=== PATIENT | male | born 1950 | race Caucasian/White ===

== ENCOUNTER 2022-05-25 05:30 | Inpatient (IN) | payer MEDICARE, BC ==
[2022-05-19 14:32] LABS: BASOPHILS # (AUTO) 0.1 X10'3 (0-0.2); BASOPHILS % (AUTO) 0.7 % (0-1); EOSINOPHILS # (AUTO) 0.1 X10'3 (0-0.9); LYMPHOCYTES # (AUTO) 1.7 X10'3 (1.1-4.8); LYMPHOCYTES % (AUTO) 17.4 % (21-51); MEAN CORPUSCULAR HEMOGLOBIN 28.1 PG (27.0-31.0); MEAN CORPUSCULAR HGB CONC 32.9 g/dL (33.0-36.5); MEAN CORPUSCULAR VOLUME 85.4 FL (78-98); MEAN PLATELET VOLUME 8.1 FL (7.4-10.4); MONOCYTES # (AUTO) 1.1 X10'3 (0-0.9); MONOCYTES % (AUTO) 10.9 % (2-12); NEUTROPHILS # (AUTO) 6.9 X10'3 (1.8-7.7); PRE OP HEMATOCRIT 37.7 % (42.0-52.0); PRE OP HEMOGLOBIN 12.4 g/dL (14.0-17.9); PRE OP PLATELET COUNT 339 X10'3 (140-440); RED BLOOD COUNT 4.42 X10'6 (4.70-6.10); RED CELL DISTRIBUTION WIDTH 16.1 % (11.5-14.5)
[2022-05-19 14:46] LABS: PRE OP INR 1.1 INR; PRE OP PROTIME 11.4 SECONDS (9.0-12.0)
[2022-05-19 14:48] LABS: ALBUMIN 2.9 G/DL (3.4-5.0); ALBUMIN/GLOBULIN RATIO 0.6 (1.1-1.5); ALKALINE PHOSPHATASE 150 IU/L (46-116); BLOOD UREA NITROGEN 14 MG/DL (7-18); BUN/CREATININE RATIO 13.9 (5.4-32.0); CALCIUM 9.3 MG/DL (8.5-10.1); CHLORIDE 102 MMOL/L (99-107); CREATININE 1.01 MG/DL (0.60-1.10); PRE OP ALT 31 U/L (30-65); PRE OP ANION GAP 10 (8-16); PRE OP AST 17 U/L (10-37); PRE OP BILIRUB, TOTAL 0.6 MG/DL (0.0-1.0); PRE OP GLUCOSE 103 MG/DL (70-104); PRE OP SODIUM 138 MMOL/L (135-145); TOTAL CARBON DIOXIDE 25.7 MMOL/L (24-32); TOTAL PROTEIN 7.6 G/DL (6.4-8.2); eGFR 73 ML/MIN
[~2022-05-25] VITALS: Ht 188 cm; Wt 97.6 kg
[2022-05-25] VITALS (23 sets, daily range): BP systolic 80–138; BP diastolic 48–83
[~2022-05-25 05:30] MED LIST: APIX5TAB3 PO; ATOR40TA PO; DICL75TA28 PO; DOCUMENT DATE & TIME OF BETA-BLOCKER PO ONE; ERGO500041 PO; ESCI5TAB PO; FURO20TA4 PO; LISI1TAB51 PO; METO50TA16 PO; OMEG-167 PO; OMEP20CA16 PO; acetaminophen 325mg tablet PO ONE; ceFAZolin inj. 3,000 MG in normal saline 100ml IV soln 100 ML IV ONE; celeCOXIB 100mg capsule PO ONE; famotidine 20mg tablet PO ONE; gabapentin 300mg capsule PO ONE; metoclopramide 5 mg/ml inj IV ONE; oxyCODONE SR 10mg (sust. release) tab -2 tabs (20mg) PO ONE; tranexamic acid inj. 1,000 MG in 0.7% saline 100 ML PMX IV ONE; vancomycin 1,500 MG in NS 300ml IV soln IV ONE
[2022-05-25] MEDS: ringers solution, lacted 1,000 ML IV SCH ×2 (06:11→19:20)
[2022-05-25] MEDS ORDERED: bisacodyl 10mg suppository rectal RC PRN (06:30)
[2022-05-25] MEDS ORDERED: diphenhydrAMINE 25mg capsule PO PRN ×2 (06:30)
[2022-05-25] MEDS ORDERED: magnesium hydroxide 30ml (MOM) UD suspension PO PRN (06:30)
[2022-05-25] MEDS ORDERED: HYDROmorphone inj. 0.5 MG/0.5 ML DISP.SYRIN IV PRN (06:30)
[2022-05-25] MEDS ORDERED: naloxone 0.4 mg/ml inj IV PRN (06:30)
[2022-05-25] MEDS ORDERED: acetaminophen 325mg tablet PO PRN (06:30)
[2022-05-25] MEDS ORDERED: ondansetron/PF 4mg/2ml inj IV PRN ×2 (06:30→09:00)
[2022-05-25] MEDS ORDERED: oxyCODONE/APAP 10/325mg tablet PO PRN (06:30)
[2022-05-25] MEDS ORDERED: HYDROmorphone 1 mg/ml syringe IV PRN (06:30)
--- NOTE | 2022-05-25 07:00 | NUR ---
PT HAS +PULSES TO BLE, ABLE TO COMPLETE SHOWERS, DID NOT VIEW INTERNET INFO-BUT DID HAVE OTHER KNEE DONE PREVIOUSLY, IS INSTRUCTION DONE.
[2022-05-25] MEDS ORDERED: cloNIDine hcl/PF 100mcg/ml inj ONE (07:24)
[2022-05-25] MEDS ORDERED: epiNEPHrine 1 mg/ml inj ONE (07:24)
[2022-05-25] MEDS ORDERED: ketorolac trometh. 30mg/ml inj. ONE (07:24)
[2022-05-25] MEDS ORDERED: ROPIVAcaine 0.5% (5mg/ml) 30ml vial ONE ×2 (07:25→10:07)
[2022-05-25] MEDS ORDERED: vancomycin 1,000mg inj ONE (07:25)
[2022-05-25] MEDS: gabapentin 300mg capsule PO SCH ×3 (08:00→20:24)
[2022-05-25] MEDS: ascorbic acid 500mg tablet PO SCH ×2 (08:00→20:24)
[2022-05-25] MEDS: multivitamins, therapeutics tablet PO SCH (08:00)
[2022-05-25] MEDS ORDERED: ceFAZolin/D5W- 1GM premix 50 ML IV SCH (08:00)
[2022-05-25] MEDS ORDERED: MIDAZolam 1mg/ml 10ml vial ONE (08:04)
[2022-05-25] MEDS ORDERED: fentaNYL/PF 50MCG/1 ML 2ML syringe ONE (08:04)
[2022-05-25] MEDS ORDERED: ringers solution, lacted 1,000 ML IV SCH (09:00)
[2022-05-25] MEDS ORDERED: meperidine/PF 25mg/ml syringe IV PRN ×2 (09:00)
[2022-05-25] MEDS ORDERED: morphine 4 MG/ML inj SYRINge IV PRN (09:00)
[2022-05-25] MEDS ORDERED: ROPIVAcaine 0.2% (10 MG/5 ML) BOLUS INJECTION ADDCANAL PRN (09:00)
[2022-05-25] MEDS ORDERED: proCHLORperazine 10 MG/2 ml inj IV PRN (09:00)
[2022-05-25] MEDS ORDERED: morphine 2 MG/ML inj. syringe IV PRN (09:00)
--- NOTE | 2022-05-25 10:23 | NUR ---
Received from OR via HOSPITAL BED, accompanied by Anesthesiologist and report given by Anesthesiolgist. 18G PIV TO LEFT HAND WITH LR RUNNING AT 100ML/HR. VSS, PATIENT IN A.FIB. RIGHT KNEE SURGICAL SITE WITH JOHN, SLEEVE, BROWN SAND. PATIENT ABLE TO WIGGLE TOES SLIGHTLY ON BILATERAL FEET, ALL OTHER EXTREMITIES NORMAL. BILATERAL DORSALIS PEDIS PULSES PRESENT. DENIES PAIN. SPINAL ANESTHESIA-PATIENT STATES FEELING NORMAL UNTIL BILATERAL UPPER THIGHS, FEELING IS DULL.
[2022-05-25] MEDS: ROPIVAcaine 0.2%/PF PUMP/bolus 545 ML ADDCANAL SCH (11:57)
[2022-05-25] MEDS: meperidine/PF 25mg/ml syringe IV PRN ×2 (12:08→12:23)
--- NOTE | 2022-05-25 12:25 | NUR ---
Patient in room ORTHO 4009B. I have received report from RIVER ASHLEY FROM [facility] and had the opportunity to ask questions and assume patient care.
--- NOTE | 2022-05-25 12:25 | NUR ---
REPORT GIVEN TO RECEIVING NURSE, HOLLAND. PATIENT TO ROOM 4005B. PATIENT C/O SLIGHT PAIN, DEMEROL GIVEN, ONQ RUNNING. DRINKING WATER, DENIES NAUSEA. SENT WITH ALL BELONGINGS.
[2022-05-25] MEDS ORDERED: tranexamic acid inj. 980 MG in normal saline 100ml IV soln 100 ML IV ONE (13:40)
[2022-05-25] MEDS ORDERED: tranexamic acid inj. 1,000 MG in normal saline 100ml IV soln 90 ML IV ONE (13:50)
[2022-05-25] MEDS: potassium cl 20mEq in 1/2 NS 1,000 ML IV SCH ×2 (14:30→19:20)
[2022-05-25] MEDS: cefazolin/dext.iso 2gm/100ml 100 ML IV SCH (17:24)
--- NOTE | 2022-05-25 19:36 | NUR ---
Problems reprioritized. Patient report given, questions answered & plan of care reviewed with MILLY Alicea RN.
[2022-05-25] MEDS ORDERED: vancomycin inj 1,750 MG in normal saline 500ml IV soln 350 ML IV ONE (20:00)
[2022-05-25] MEDS: apixaban 5mg tablet PO SCH (20:24)
[2022-05-25] MEDS: sennosides 8.6mg tablet PO SCH (20:24)
[2022-05-25] MEDS: ESCITALOPRAM OXALATE 5 MG TABLET PO SCH (20:25)
[2022-05-25] MEDS: atorvastatin 20mg tablet PO SCH (20:25)
[2022-05-25] MEDS: metoprolol tartrate 50mg tablet PO SCH (20:27)
[2022-05-26] MEDS: cefazolin/dext.iso 2gm/100ml 100 ML IV SCH (00:10)
[2022-05-26] MEDS: potassium cl 20mEq in 1/2 NS 1,000 ML IV SCH ×3 (00:11→15:39)
[2022-05-26 02:00] VITALS: BP 131/84
[2022-05-26] MEDS: oxyCODONE/APAP 10/325mg tablet PO PRN ×2 (05:02→13:20)
[2022-05-26 06:00] VITALS: BP 127/64
[2022-05-26 06:51] LABS: BASOPHILS % (AUTO) 0.5 % (0-1); EOSINOPHILS # (AUTO) 0.1 X10'3 (0-0.9); EOSINOPHILS % (AUTO) 1.3 % (0-6); HEMATOCRIT 34.1 % (42.0-52.0); HEMOGLOBIN 11.1 g/dl (14.0-17.9); LYMPHOCYTES # (AUTO) 1.2 X10'3 (1.1-4.8); LYMPHOCYTES % (AUTO) 12.6 % (21-51); MEAN CORPUSCULAR HEMOGLOBIN 27.9 PG (27.0-31.0); MEAN CORPUSCULAR HGB CONC 32.6 g/dL (33.0-36.5); MEAN CORPUSCULAR VOLUME 85.4 FL (78-98); MEAN PLATELET VOLUME 8.1 FL (7.4-10.4); MONOCYTES # (AUTO) 1.1 X10'3 (0-0.9); MONOCYTES % (AUTO) 11.6 % (2-12); NEUTROPHILS # (AUTO) 7.1 X10'3 (1.8-7.7); PLATELET COUNT 284 X10'3 (140-440); RED BLOOD COUNT 3.99 X10'6 (4.70-6.10); RED CELL DISTRIBUTION WIDTH 16.3 % (11.5-14.5); WHITE BLOOD COUNT 9.5 X10'3 (4.5-11.0)
[2022-05-26 07:17] LABS: ANION GAP 12 (8-16); CHLORIDE 103 MMOL/L (99-107); POTASSIUM 4.4 MMOL/L (3.5-5.1); SODIUM 139 MMOL/L (135-145)
[2022-05-26] MEDS: furosemide 20MG tablet PO SCH (08:00)
[2022-05-26] MEDS: multivitamins, therapeutics tablet PO SCH (08:50)
[2022-05-26] MEDS: HYDROchlorothiazide 12.5mg capsule PO SCH (08:51)
[2022-05-26] MEDS: metoprolol tartrate 50mg tablet PO SCH ×2 (08:51→20:00)
[2022-05-26] MEDS: lisinopril 20mg tablet PO SCH (08:52)
[2022-05-26] MEDS: ascorbic acid 500mg tablet PO SCH ×2 (08:52→20:33)
[2022-05-26] MEDS: gabapentin 300mg capsule PO SCH ×3 (08:53→20:36)
[2022-05-26] MEDS: apixaban 5mg tablet PO SCH ×2 (08:53→20:33)
[2022-05-26] MEDS: pantoprazole 40mg Tablet.DR PO SCH (08:53)
--- NOTE | 2022-05-26 11:13 | NUR ---
Noted pt s/p right TKA. Written protein education with RD contact information placed in patient's chart. Pt on a regular diet and eating well, documented with 100% PO intake. Will continue to follow. Addendum: 05/26/22 at [address] Amended: Links added.
[2022-05-26 14:14] VITALS: BP 121/60
[2022-05-26 18:00] VITALS: BP 96/56
--- NOTE | 2022-05-26 18:05 | NUR ---
Patient in room ORTHO 4009. I have received report from RIVER Romero and had the opportunity to ask questions and assume patient care.
[2022-05-26 20:30] VITALS: BP 97/65
--- NOTE | 2022-05-26 20:30 | NUR ---
Agree with Alexia Rivas's Physical assessment with some exceptions.
[2022-05-26] MEDS: celeCOXIB 100mg capsule PO SCH (20:32)
[2022-05-26] MEDS: ESCITALOPRAM OXALATE 5 MG TABLET PO SCH (20:35)
[2022-05-26] MEDS: sennosides 8.6mg tablet PO SCH (20:36)
[2022-05-26] MEDS: atorvastatin 20mg tablet PO SCH (20:36)
[2022-05-26 22:00] VITALS: BP 113/61
[2022-05-27] MEDS: oxyCODONE/APAP 10/325mg tablet PO PRN ×2 (01:11→10:51)
[2022-05-27 02:00] VITALS: BP 110/40
[2022-05-27 06:00] VITALS: BP 117/58
--- NOTE | 2022-05-27 06:09 | NUR ---
Problems reprioritized. Patient report given, questions answered & plan of care reviewed with WENCESLAO Grijalva.
--- NOTE | 2022-05-27 06:30 | NUR ---
Patient in room ORTHO 4009. I have received report from WENCESLAO Hale and had the opportunity to ask questions and assume patient care.
[2022-05-27 06:48] LABS: BASOPHILS % (AUTO) 0.3 % (0-1); EOSINOPHILS # (AUTO) 0.1 X10'3 (0-0.9); EOSINOPHILS % (AUTO) 1.3 % (0-6); HEMATOCRIT 31.7 % (42.0-52.0); HEMOGLOBIN 10.6 g/dl (14.0-17.9); LYMPHOCYTES # (AUTO) 1.8 X10'3 (1.1-4.8); LYMPHOCYTES % (AUTO) 17.1 % (21-51); MEAN CORPUSCULAR HEMOGLOBIN 28.2 PG (27.0-31.0); MEAN CORPUSCULAR HGB CONC 33.3 g/dL (33.0-36.5); MEAN CORPUSCULAR VOLUME 84.5 FL (78-98); MEAN PLATELET VOLUME 7.6 FL (7.4-10.4); MONOCYTES # (AUTO) 1.6 X10'3 (0-0.9); MONOCYTES % (AUTO) 15.5 % (2-12); NEUTROPHILS # (AUTO) 6.8 X10'3 (1.8-7.7); NEUTROPHILS % (AUTO) 65.8 % (42-75); PLATELET COUNT 285 X10'3 (140-440); RED BLOOD COUNT 3.75 X10'6 (4.70-6.10); RED CELL DISTRIBUTION WIDTH 16.3 % (11.5-14.5); WHITE BLOOD COUNT 10.3 X10'3 (4.5-11.0)
[2022-05-27 07:18] LABS: ANISOCYTOSIS 1+; PLATELET ESTIMATE NORMAL; TOTAL CELLS COUNTED 100
[2022-05-27] MEDS: pantoprazole 40mg Tablet.DR PO SCH (07:55)
[2022-05-27] MEDS: celeCOXIB 100mg capsule PO SCH ×2 (07:55→21:21)
[2022-05-27] MEDS: gabapentin 300mg capsule PO SCH ×3 (07:56→21:21)
[2022-05-27] MEDS: multivitamins, therapeutics tablet PO SCH (07:56)
[2022-05-27] MEDS: ascorbic acid 500mg tablet PO SCH ×2 (07:56→21:20)
[2022-05-27] MEDS: apixaban 5mg tablet PO SCH ×2 (07:56→21:21)
[2022-05-27] MEDS: lisinopril 20mg tablet PO SCH (07:57)
[2022-05-27] MEDS: furosemide 20MG tablet PO SCH (07:57)
[2022-05-27] MEDS: metoprolol tartrate 50mg tablet PO SCH ×2 (07:57→21:22)
[2022-05-27] MEDS: HYDROchlorothiazide 12.5mg capsule PO SCH (07:58)
[2022-05-27] MEDS: ROPIVAcaine 0.2%/PF PUMP/bolus 545 ML ADDCANAL SCH (09:17)
[2022-05-27 10:00] VITALS: BP 94/54
--- NOTE | 2022-05-27 17:00 | NUR ---
I have reviewed and agree with all interventions, assessments performed and documented by WENCESLAO Grijalva.
[2022-05-27 18:00] VITALS: BP 113/65
--- NOTE | 2022-05-27 18:30 | NUR ---
Problems reprioritized. Patient report given, questions answered & plan of care reviewed with RIVER Fishman.
--- NOTE | 2022-05-27 18:35 | NUR ---
Patient in room ORTHO 4009. I have received report from Valentine BILLY and had the opportunity to ask questions and assume patient care.
[2022-05-27] MEDS: potassium cl 20mEq in 1/2 NS 1,000 ML IV SCH (20:53)
[2022-05-27] MEDS: ESCITALOPRAM OXALATE 5 MG TABLET PO SCH (21:21)
[2022-05-27] MEDS: sennosides 8.6mg tablet PO SCH (21:21)
[2022-05-27] MEDS: atorvastatin 20mg tablet PO SCH (21:21)
[2022-05-27 22:00] VITALS: BP 128/64
[2022-05-28] MEDS: oxyCODONE/APAP 10/325mg tablet PO PRN ×2 (03:16→07:39)
[2022-05-28 06:00] VITALS: BP 112/68
--- NOTE | 2022-05-28 06:29 | NUR ---
Patient in room ORTHO 4009. I have received report from RIVER Fishman and had the opportunity to ask questions and assume patient care.
--- NOTE | 2022-05-28 06:29 | NUR ---
Problems reprioritized. Patient report given, questions answered & plan of care reviewed with Valentine HOLMAN.
[2022-05-28 07:09] LABS: BASOPHILS % (AUTO) 0.3 % (0-1); EOSINOPHILS # (AUTO) 0.1 X10'3 (0-0.9); EOSINOPHILS % (AUTO) 0.9 % (0-6); HEMATOCRIT 30.5 % (42.0-52.0); HEMOGLOBIN 9.9 g/dl (14.0-17.9); LYMPHOCYTES # (AUTO) 1.6 X10'3 (1.1-4.8); LYMPHOCYTES % (AUTO) 11.7 % (21-51); MEAN CORPUSCULAR HEMOGLOBIN 27.6 PG (27.0-31.0); MEAN CORPUSCULAR HGB CONC 32.3 g/dL (33.0-36.5); MEAN CORPUSCULAR VOLUME 85.3 FL (78-98); MEAN PLATELET VOLUME 8.3 FL (7.4-10.4); MONOCYTES # (AUTO) 1.5 X10'3 (0-0.9); MONOCYTES % (AUTO) 10.9 % (2-12); NEUTROPHILS # (AUTO) 10.2 X10'3 (1.8-7.7); NEUTROPHILS % (AUTO) 76.2 % (42-75); PLATELET COUNT 300 X10'3 (140-440); RED BLOOD COUNT 3.58 X10'6 (4.70-6.10); RED CELL DISTRIBUTION WIDTH 16.4 % (11.5-14.5); WHITE BLOOD COUNT 13.3 X10'3 (4.5-11.0)
[2022-05-28] MEDS: gabapentin 300mg capsule PO SCH (07:26)
[2022-05-28] MEDS: multivitamins, therapeutics tablet PO SCH (07:26)
[2022-05-28] MEDS: pantoprazole 40mg Tablet.DR PO SCH (07:26)
[2022-05-28] MEDS: apixaban 5mg tablet PO SCH (07:26)
[2022-05-28] MEDS: celeCOXIB 100mg capsule PO SCH (07:27)
[2022-05-28] MEDS: ascorbic acid 500mg tablet PO SCH (07:27)
[2022-05-28] MEDS: lisinopril 20mg tablet PO SCH (07:33)
[2022-05-28 07:34] VITALS: BP_SYST 96
[2022-05-28] MEDS: HYDROchlorothiazide 12.5mg capsule PO SCH (07:34)
[2022-05-28] MEDS: furosemide 20MG tablet PO SCH (07:34)
[2022-05-28] MEDS: metoprolol tartrate 50mg tablet PO SCH (07:34)
[2022-05-28] MEDS: ROPIVAcaine 0.2%/PF PUMP/bolus 545 ML ADDCANAL SCH (08:47)
--- NOTE | 2022-05-28 10:00 | NUR ---
LIGHT EQUIPMENT OPERATOR documentation: I have reviewed and agree with all interventions, assessments performed and documented by Valentine Zelaya LVN.
--- NOTE | 2022-05-28 10:43 | NUR ---
Patient discharge home with friend. Discharge information was review with patient who verbalize understanding. Staff assisted patient to personal vehicle with all belongings.
== END 2022-05-28 10:25 | disposition home or self-care (01) | DRG 470 ==
LOC: PAS 05:30 → ORTHO 4S 06:33
PROVIDERS: ADMIT Orthopaedic Surgery; ATTEND Orthopaedic Surgery
PROC: 0SRC0J9 Replacement of Right Knee Joint with Synthetic Substitute, Cemented, Open Approach (ICD-10-PCS; principal; 2022-05-25 08:03)
DX: M17.31 Unilateral post-traumatic osteoarthritis, right knee (principal); Z20.822 Contact with and (suspected) exposure to COVID-19; I95.9 Hypotension, unspecified; Z79.01 Long term (current) use of anticoagulants; Z79.899 Other long term (current) drug therapy
CPT/HCPCS: 36415; 73560; 80051; 80053; 82948; 85007; 85025; 85610; 85730; 86885; 86900; 86901; 87081; 87811; 97110; 97116; 97162; 97530; A4215; A4615; A6449; A7000; C1713; C1776; G0378; J0171; J0690; J0735; J1885; J2175; J2250; J2765; J2795; J3010; J3370; J3480; J3490; J7040; J7120

== ENCOUNTER 2023-09-29 08:27 | Outpatient (CLI) | payer MEDICARE, BC ==
[~2023-09-29 08:27] MED LIST changes: -DOCUMENT DATE & TIME OF BETA-BLOCKER PO ONE; -acetaminophen 325mg tablet PO ONE; -ceFAZolin inj. 3,000 MG in normal saline 100ml IV soln 100 ML IV ONE; -celeCOXIB 100mg capsule PO ONE; -famotidine 20mg tablet PO ONE; -gabapentin 300mg capsule PO ONE; -metoclopramide 5 mg/ml inj IV ONE; -oxyCODONE SR 10mg (sust. release) tab -2 tabs (20mg) PO ONE; -tranexamic acid inj. 1,000 MG in 0.7% saline 100 ML PMX IV ONE; -vancomycin 1,500 MG in NS 300ml IV soln IV ONE
[2023-09-29 09:00] LABS: BASOPHILS # (AUTO) 0.1 X10'3 (0-0.2); EOSINOPHILS # (AUTO) 0.1 X10'3 (0-0.9); EOSINOPHILS % (AUTO) 1.8 % (0-6); HEMOGLOBIN 15.5 g/dl (14.0-17.9); LYMPHOCYTES # (AUTO) 1.9 X10'3 (1.1-4.8); LYMPHOCYTES % (AUTO) 23.2 % (21-51); MEAN CORPUSCULAR HEMOGLOBIN 31.9 PG (27.0-31.0); MEAN CORPUSCULAR HGB CONC 33.8 g/dL (33.0-36.5); MEAN CORPUSCULAR VOLUME 94.3 FL (78-98); MEAN PLATELET VOLUME 8.5 FL (7.4-10.4); MONOCYTES % (AUTO) 12.2 % (2-12); NEUTROPHILS # (AUTO) 5.1 X10'3 (1.8-7.7); NEUTROPHILS % (AUTO) 61.8 % (42-75); PLATELET COUNT 204 X10'3 (140-440); RED BLOOD COUNT 4.87 X10'6 (4.70-6.10); RED CELL DISTRIBUTION WIDTH 13.7 % (11.5-14.5); WHITE BLOOD COUNT 8.2 X10'3 (4.5-11.0)
[2023-09-29 09:12] LABS: APTT 32 SECONDS (22-32)
[2023-09-29 09:27] LABS: ALANINE AMINOTRANSFERASE 30 U/L (12-78); ALBUMIN 3.1 G/DL (3.4-5.0); ALBUMIN/GLOBULIN RATIO 0.8 (1.1-1.5); ALKALINE PHOSPHATASE 109 IU/L (46-116); ANION GAP 12 (8-16); ASPARTATE AMINO TRANSFERASE 22 U/L (10-37); BILIRUBIN,TOTAL 0.7 MG/DL (0.1-1.0); BLOOD UREA NITROGEN 19 MG/DL (7-18); BUN/CREATININE RATIO 17.4 (10.0-20.0); CALCIUM 8.8 MG/DL (8.5-10.1); CHLORIDE 101 MMOL/L (99-107); CREATININE 1.09 MG/DL (0.60-1.10); GLUCOSE 116 MG/DL (70-104); POTASSIUM 3.7 MMOL/L (3.5-5.1); SODIUM 136 MMOL/L (135-145); TOTAL CARBON DIOXIDE 23.5 MMOL/L (24-32); TOTAL PROTEIN 7.2 G/DL (6.4-8.2); eGFR 67 ML/MIN
[2023-09-29] MEDS ORDERED: iohexol 350MG/ML 100ml bottle IV ONE (09:34)
[2023-10-07] MEDS ORDERED: RIVA10TA PO (11:51)
[2023-10-07] MEDS ORDERED: CENTRUM SILVER (11:54)
[2023-10-07] MEDS ORDERED: DULO30CA52 PO (11:54)
[2023-10-07] MEDS ORDERED: ZINC (11:54)
== END 2023-09-29 23:59 | disposition home or self-care (01) ==
LOC: 64 CT 08:27
PROVIDERS: ATTEND Student in an Organized Health Care Education/Training Program
DX: I48.91 Unspecified atrial fibrillation (principal); I48.92 Unspecified atrial flutter
CPT/HCPCS: 36415; 75572; 80053; 85025; 85610; 85730; J3490; Q9967